=== PATIENT | male | born 1995 | race Caucasian/White ===

== ENCOUNTER 2020-02-26 13:41 | Emergency (ER) | payer SELFPAY ==
[~2020-02-26] VITALS: Ht 172.7 cm; Wt 90.7 kg
[2020-02-26 13:46] VITALS: BP 146/98; Ht 172.7 cm; Wt 90.7 kg
== END 2020-02-26 14:35 | disposition left against medical advice (07) ==
LOC: ED 13:41
DX: T40.4X1A Poisoning by other synthetic narcotics, accidental (unintentional), initial encounter (principal); J45.909 Unspecified asthma, uncomplicated; F17.210 Nicotine dependence, cigarettes, uncomplicated; Y92.89 Other specified places as the place of occurrence of the external cause
CPT/HCPCS: 83880; 99406; G0480; J2310; J3411; J3490; J7030; Q0092